=== PATIENT | female | born 1980 | race Caucasian/White ===

== ENCOUNTER → 2017-07-24 | Outpatient (CLI) | payer OTHER, BC ==
[~2017-07-24] MED LIST: AMOXICILLIN500 MG PO; ANAPROX DS550 MG PO; CILOXAN 10 ML10 ML OT; CILOXAN 5 ML5 ML OPH; CILOXAN 5 ML5 ML OT; LEVAQUIN500 M2 PO; OMEGA 31000 MG; VIBRAMYCIN100 MG PO; VICODIN 500 MG-1 TAB PO
== END | disposition home or self-care (01) ==
LOC: CT 08:54
DX: R20.8 Other disturbances of skin sensation (principal); M54.10 Radiculopathy, site unspecified